=== PATIENT | female | born 1975 | race Caucasian/White ===

== ENCOUNTER → 2016-11-23 | Outpatient (CLI) | payer BC | END | disposition home or self-care (01) | LOC: LABWHC1 16:34 | PROVIDERS: ATTEND Dermatology Dermatopathology | DX: L70.0 Acne vulgaris (principal); E87.5 Hyperkalemia; Z79.899 Other long term (current) drug therapy | CPT/HCPCS: 36415; 84132 ==

== ENCOUNTER → 2018-05-16 | Outpatient (CLI) | payer BC ==
--- NOTE | 2018-05-16 07:32 | US ---
EXAMINATION TYPE: US liver DATE OF EXAM: 05/16/2018 COMPARISON: US CLINICAL HISTORY: R74.8 elevated liver enzymes. Elevated LFT's Large pt body habitus, difficult to scan EXAM MEASUREMENTS: Liver Length: 15.6 cm Gallbladder Wall: 0.1 cm CBD: 0.3 cm Right Kidney: 11.4 x 4.5 x 5.5 cm Pancreas: wnl, tail obscured by overlying bowel gas Liver: Difficult to penetrate. There is increased echogenicity of the hepatic parenchyma with dimini shed visualization of the portal triads most commonly relating to hepatic steatosis and limiting eval uation for underlying hepatic masses. Focal wedge-shaped hypoechoic area that is geographic and morph ology is seen adjacent to the gallbladder fossa most likely representing focal fatty sparing. Gallbladder: wnl Evidence for sonographic Valente's sign: No CBD: wnl Right Kidney: wnl IMPRESSION: Sonographic findings most compatible with hepatic steatosis and focal fatty sparing. No c holelithiasis or acute cholecystitis.
== END | disposition home or self-care (01) ==
LOC: RADUSWWP 07:05
PROVIDERS: ATTEND Family Medicine
DX: R74.8 Abnormal levels of other serum enzymes (principal)
CPT/HCPCS: 76705

== ENCOUNTER → 2021-02-19 | Outpatient (CLI) | payer BC ==
--- NOTE | 2021-02-23 09:12 | MM ---
Reason for exam: screening (asymptomatic). Last mammogram was performed 4 years and 11 months ago. Physical Findings: A clinical breast exam by your physician is recommended on an annual basis and results should be correlated with mammographic findings. MG Screening Mammo w CAD Bilateral CC and MLO view(s) were taken. Prior study comparison: March 07, 2016, bilateral MG screening mammo w CAD. The breast tissue is heterogeneously dense. This may lower the sensitivity of mammography. Finding: There are typically benign round calcifications in both breasts. No significant changes in finding since March 07, 2016. ASSESSMENT: Benign, BI-RAD 2 RECOMMENDATION: Routine screening mammogram of both breasts in 1 year.
== END | disposition home or self-care (01) ==
LOC: RADMAMWWP 11:04
PROVIDERS: ATTEND Family Medicine
DX: Z12.31 Encounter for screening mammogram for malignant neoplasm of breast (principal)
CPT/HCPCS: 77067

== ENCOUNTER → 2022-06-07 | Outpatient (CLI) | payer OTHER ==
[2022-06-07 18:02] LABS: Basophils # (A) 0.05 X 10*3/uL (0.00-0.10); Basophils % (A) 0.8 %; Eosinophils # (A) 0.36 X 10*3/uL (0.04-0.35); Eosinophils % (A) 5.5 %; HCT 40.1 % (37.2-46.3); HGB 13.1 g/dL (12.0-15.0); Immature Grans, Automated 0.2 %; Lymphocytes # (A) 1.53 X 10*3/uL (0.90-5.00); Lymphocytes % (A) 23.4 %; MCH 28.2 pg (27.0-32.0); MCHC 32.7 g/dL (32.0-37.0); MCV 86.4 fL (80.0-97.0); Mean Platelet Volume 11.1 fL (9.5-12.2); Monocytes # (A) 0.49 X 10*3/uL (0.20-1.00); Monocytes % (A) 7.5 %; NRBC Per 100 WBC 0 /100 WBCS (0.0-0.0); Neutrophils # (A) 4.11 X 10*3/uL (1.80-7.70); Neutrophils % (A) 62.6 %; Platelet Count 285 X 10*3/uL (140-440); RBC 4.64 X 10*6/uL (4.10-5.20); RDW 15.3 % (11.5-14.5); WBC 6.55 X 10*3/uL (4.50-10.00)
[2022-06-07 18:36] LABS: ALT 23 U/L (8-44); AST 16 U/L (13-35); African American GFR (CKD) 127.5 (60.0-200.0); Albumin 4.3 g/dL (3.8-4.9); Albumin/Globulin Ratio 1.78 (1.60-3.17); Alkaline Phosphatase 98 U/L (41-126); BUN/Creat Ratio 15.08 Ratio (12.00-20.00); Blood Urea Nitrogen 8.9 mg/dL (9.0-27.0); Calcium 9.2 mg/dL (8.7-10.3); Carbon Dioxide 23.4 mmol/L (20.0-27.5); Chloride 102 mmol/L (96-109); Globulin 2.4 g/dL (1.6-3.3); Glucose 137 mg/dL (70-110); LDL Cholesterol,Calculated 86.6 mg/dL (0.0-131.0); Potassium 4.5 mmol/L (3.5-5.5); Sodium 136 mmol/L (135-145); Total Protein 6.8 g/dL (6.2-8.2); VLDL Calculation 19.72 mg/dL (5.00-40.00)
== END | disposition home or self-care (01) ==
LOC: LABWHC1 11:31
PROVIDERS: ATTEND Physician Assistant Medical
DX: I10 Essential (primary) hypertension (principal); E11.9 Type 2 diabetes mellitus without complications
CPT/HCPCS: 36415; 80053; 80061; 83036; 85025

== ENCOUNTER → 2022-08-24 | Outpatient (CLI) | payer OTHER ==
--- NOTE | 2022-08-25 09:29 | MM ---
Reason for Exam: Screening (asymptomatic). Last mammogram was performed 1 year(s) and 6 month(s) ago. Patient History: Menarche at age 12. Risk Values: Betsy 5 year model risk: 0.7%. NCI Lifetime model risk: 7.6%. Prior Study Comparison: 03/07/2016 Bilateral Screening Mammogram, [facility]. 02/19/2021 Bilateral Screening Mammogram, [facility]. Tissue Density: The breast tissue is almost entirely fat. Findings: Analyzed By CAD. Benign appearing calcifications bilaterally. There is no suspicious group of microcalcifications or new suspicious mass in either breast. Overall Assessment: Benign, BI-RAD 2 Management: Screening Mammogram of both breasts in 1 year. A clinical breast exam by your physician is recommended on an annual basis and results should be correlated with mammographic findings. [facility] will attempt to contact patient to return for supplemental views and ultrasound if indicated. Electronically signed and approved by: Weston Sykes DO
== END | disposition home or self-care (01) ==
LOC: RADMAMWWP 09:52
PROVIDERS: ATTEND Family Medicine
DX: Z12.31 Encounter for screening mammogram for malignant neoplasm of breast (principal)
CPT/HCPCS: 77067

== ENCOUNTER → 2025-01-24 | Outpatient (CLI) | payer BC ==
--- NOTE | 2025-01-24 17:51 | MM ---
Reason for Exam: Screening (asymptomatic). Last mammogram was performed 2 year(s) and 5 month(s) ago. Patient History: Menarche at age 12. Risk Values: Betsy 5 year model risk: 0.7%. NCI Lifetime model risk: 7.4%. Prior Study Comparison: 03/07/2016 Bilateral Screening Mammogram, [facility]. 02/19/2021 Bilateral Screening Mammogram, [facility]. 08/24/2022 Bilateral MG screening mammo w CAD, [facility]. Tissue Density: There are scattered areas of fibroglandular density. Findings: Analyzed By CAD. Redemonstrated scattered benign round calcifications. Unchanged right upper outer quadrant focal asymmetry. There is no suspicious group of microcalcifications or new suspicious mass in either breast. Overall Assessment: Benign, BI-RAD 2 Management: Screening Mammogram of both breasts in 1 year. Patient should continue monthly self-breast exams. A clinical breast exam by your physician is recommended on an annual basis. This exam should not preclude additional follow-up of suspicious palpable abnormalities. Note on Betsy scores and lifetime risk: 1. A Betsy score greater than 3% is considered moderate risk. If this is the case, consider specialist referral to assess eligibility for a risk reducing agent. 2. If overall lifetime risk for the development of breast cancer is 20% or higher, the patient may qualify for future screening with alternating mammogram and breast MRI. [facility], , 01/24/2025 5:49 PM. Electronically signed and approved by: Nara Jackson M.D. Radiologist
== END | disposition home or self-care (01) ==
LOC: RADMAMWWP 09:35
PROVIDERS: ATTEND Family Medicine
DX: Z12.31 Encounter for screening mammogram for malignant neoplasm of breast (principal); R92.323 Mammographic fibroglandular density, bilateral breasts; R92.1 Mammographic calcification found on diagnostic imaging of breast
CPT/HCPCS: 77067

== ENCOUNTER 2025-02-04 13:10 | Emergency (ER) | payer BC ==
[2025-02-04 13:14] VITALS: RESP 18
--- NOTE | 2025-02-04 14:45 | ED ---
General Adult HPI - General Chief complaint: Extremity Problem,Nontraumatic Stated complaint: R leg pain Time Seen by Provider: 02/04/25 13:25 Source: patient, RN notes reviewed Mode of arrival: wheelchair Limitations: no limitations - History of Present Illness Initial comments: 50-year-old female presents emergency department for complaints of nontraumatic right leg pain that has been going on for "a while ". She states that she was evaluated by her primary care provider where they believe that she may have pulled a muscle or pinched nerve in her back and she has been taking baclofen with minimal relief in pain. She states that the pain in the calf is not worsening over the past few days. She denies swelling of her calf, redness, recent travel or surgeries, history of DVT/PE, chest pain or difficulty in breathing. - Related Data Previous Rx's Medication Instructions Recorded Cyclobenzaprine [Flexeril] 10 mg PO TID PRN #15 tab 02/04/25 Ketorolac [Toradol] 10 mg PO Q8HR #15 tab 02/04/25 Allergies Allergy/AdvReac Type Severity Reaction Status Date / Time azithromycin Allergy Unknown Verified 02/04/25 13:14 Penicillins Allergy Unknown Verified 02/04/25 13:14 tetracycline Allergy Unknown Verified 02/04/25 13:14 Review of Systems ROS Statement: Those systems with pertinent positive or pertinent negative responses have been documented in the HPI. ROS Other: All systems not noted in ROS Statement are negative. Past Medical History Past Medical History: Diabetes Mellitus, Hypertension History of Any Multi-Drug Resistant Organisms: None Reported Past Surgical History: No Surgical Hx Reported Past Psychological History: No Psychological Hx Reported Smoking Status: Never smoker Past Alcohol Use History: None Reported Past Drug Use History: None Reported General Exam Limitations: no limitations General appearance: alert, in no apparent distress Neck exam: Present: normal inspection. Absent: tenderness, meningismus, lymphadenopathy Respiratory exam: Present: normal lung sounds bilaterally. Absent: respiratory distress, wheezes, rales, rhonchi, stridor Cardiovascular Exam: Present: regular rate, normal rhythm, normal heart sounds. Absent: systolic murmur, diastolic murmur, rubs, gallop, clicks GI/Abdominal exam: Present: soft, normal bowel sounds. Absent: distended, tenderness, guarding, rebound, rigid Right Lower Leg exam: Present: tenderness. Absent: swelling, palpable cord, Homans' sign Back exam: Present: normal inspection, full ROM, tenderness. Absent: CVA tenderness (R), CVA tenderness (L) Neurological exam: Present: alert, oriented X3, CN II-XII intact Course Vital Signs 02/04/25 02/04/25 13:13 16:22 Temperature 98.5 F 98.4 F Pulse Rate 87 82 Respiratory 18 18 Rate Blood Pressure 128/89 124/86 O2 Sat by Pulse 97 98 Oximetry Medical Decision Making - Medical Decision Making Was pt. sent in by a medical professional or institution (, [place], [employer] [employer], urgent care, hospital, or senior living...) When possible be specific @ -No Did you speak to anyone other than the patient for history (EMS, parent, family, police, friend...)? What history was obtained from this source @ -No Did you review nursing and triage notes (agree or disagree)? Why? @ -I reviewed and agree with nursing and triage notes Were old charts reviewed (outside hosp., previous admission, EMS record, old EKG, old radiological studies, urgent care reports/EKG's, senior living records)? Report findings @ -No old charts were reviewed Differential Diagnosis (chest pain, altered mental status, abdominal pain women, abdominal pain men, vaginal bleeding, weakness, fever, dyspnea, syncope, headache, dizziness, GI bleed, back pain, seizure, CVA, palpatations, mental health, musculoskeletal)? @ -Differential Back Pain: Strain, zoster, cauda equina syndrome, epidural abscess, vertebral osteomyelitis, discitis, fracture, subluxation, disc herniation, DJD, spinal stenosis, dissection, AAA, pancreatitis, peptic ulcer disease, pyelonephritis, kidney stone, this is not meant to be an all-inclusive list. EKG interpreted by me (3pts min.). @ -none X-rays interpreted by me (1pt min.). @ -None done CT interpreted by me (1pt min.). @ -None done U/S interpreted by me (1pt. min.). @ -Ultrasound imaging of the right lower extremity no evidence for DVT What testing was considered but not performed or refused? (CT, X-rays, U/S, labs)? Why? @ -None What meds were considered but not given or refused? Why? @ -None Did you discuss the management of the patient with other professionals (professionals i.e. DrChristina, PA, [employer], lab, RT, psych nurse, social insurance analyst, conference specialist, teacher, financial officer, disease case manager rn)? Give summary @ -No Was smoking cessation discussed for >3mins.? @ -No Was critical care preformed (if so, how long)? @ -No Were there social determinants of health that impacted care today? How? (Home lessness, low income, unemployed, alcoholism, drug addiction, transportation, low edu. Level, literacy, decrease access to med. care, assisted, rehab)? @ -No Was there de-escalation of care discussed even if they declined (Discuss DNR or withdrawal of care, Hospice)? DNR status @ -No What co-morbidities impacted this encounter? (DM, HTN, Smoking, COPD, CAD, Cancer, CVA, ARF, Chemo, Hep., AIDS, mental health diagnosis, sleep apnea, morbid obesity)? @ -None Was patient admitted / discharged? Hospital course, mention meds given and route, prescriptions, significant lab abnormalities, going to OR and other pertinent info. @ -[Discharge. 50-year-old female presenting with complaints of right calf and leg pain. Overall patient is well-appearing. Negative Homans signs on examination with no evidence of palpable cord or erythema. Patient does have tenderness to the Is a repeat ultrasound that is negative for evidence of DVT. Patient's symptoms align with lumbar radiculopathy. There are no red flag findings concerning for cauda equina such as loss of bladder or bowel control or saddle anesthesias. Patient provided with the medication and orthopedic referral was instructed follow-up with primary care provider. Continue supportive treatment. Case discussed with Dr. Edwards Undiagnosed new problem with uncertain prognosis? @ -No Drug Therapy requiring intensive monitoring for toxicity (Heparin, Nitro, Insulin, Cardizem)? @ -No Were any procedures done? @ -No Diagnosis/symptom? @ -Lumbar radiculopathy Acute, or Chronic, or Acute on Chronic? @ -Acute Uncomplicated (without systemic symptoms) or Complicated (systemic symptoms)? @ -Uncomplicated Side effects of treatment? @ -No Exacerbation, Progression, or Severe Exacerbation? @ -No Poses a threat to life or bodily function? How? (Chest pain, [place], SC, pneumonia, PE, COPD, DKA, ARF, appy, cholecystitis, CVA, Diverticulitis, Homicidal, Suicidal, threat to staff... and all critical care pts) @ -No Disposition Clinical Impression: Lumbar back pain with radiculopathy affecting lower extremity Disposition: HOME SELF-CARE Condition: Good Instructions (If sedation given, give patient instructions): Lumbar Radiculopathy (ED) Additional Instructions: Please return to the Emergency Department if symptoms worsen or any other concerns. You may take Toradol with acetaminophen/Tylenol however do not take this medication with other NSAIDs such as Motrin/Aleve/ibuprofen. Prescriptions: Cyclobenzaprine [Flexeril] 10 mg PO TID PRN #15 tab PRN Reason: Muscle Spasm Ketorolac [Toradol] 10 mg PO Q8HR #15 tab Is patient prescribed a controlled substance at d/c from ED?: No Referrals: Natasha Lozano MD [Primary Care Provider] - 1-2 days Baron Mcdonald MD [STAFF PHYSICIAN] - 1-2 days Time of Disposition: 15:56
[2025-02-04] MEDS: MORPHINE SULFATE 4 MG/ML SYRINGE IM STA (14:50)
--- NOTE | 2025-02-04 15:28 | US ---
EXAMINATION TYPE: US venous doppler duplex LE RT DATE OF EXAM: 02/04/2025 3:16 PM COMPARISON: NONE CLINICAL INDICATION: Female, 50 years old with history of pain; Pain. Patient takes baby aspirin. TECHNIQUE: The lower extremity deep venous system is examined utilizing real time linear array sonog ivette with graded compression, color doppler sonography, and spectral doppler. SIDE PERFORMED: Right FINDINGS: VESSELS IMAGED: Common Femoral Vein Deep Femoral Vein Greater Saphenous Vein * Femoral Vein Popliteal Vein Small Saphenous Vein * Proximal Calf Veins (* superficial vessels) Right Leg: No evidence of DVT. *Complex area seen right medial popliteal fossa: 5.3 x 2.5 x 1.3 cm. IMPRESSION: No evidence for DVT. [facility], , 02/04/2025 3:26 PM
[2025-02-04] MEDS: methylPREDNISolone SOD SUCCI 125 MG/2 ML VIAL IM ONE (16:09)
[2025-02-04] MEDS: ACET/COD 300 MG/30 MG STARTER PACK 6 TAB BTL PO STA (16:09)
[2025-02-04] MEDS: LIDOCAINE 4% PATCH TOPICAL ONE (16:10)
[2025-02-04 16:23] VITALS: BP 124/86; PULSE 82; TEMP 98.4
== END 2025-02-04 16:28 | disposition home or self-care (01) ==
LOC: EC 13:10
DX: M51.17 Intervertebral disc disorders with radiculopathy, lumbosacral region (principal); Z88.0 Allergy status to penicillin; Z88.8 Allergy status to other drugs, medicaments and biological substances
CPT/HCPCS: 93971; 99283; 96372 ×2; J2270; J2919

== ENCOUNTER → 2025-03-04 | Outpatient (CLI) | payer BC ==
--- NOTE | 2025-03-04 11:37 | MR ---
INDICATION: Patient age:Female; 50 years old; Reason for study: M47.26 M41.86 M54.5; [facility]. COMPARISONS: Lumbar spine radiograph 02/10/2025. TECHNIQUE: Multi planar, multi sequence imaging was performed utilizing: T1-weighted, T2-weighted, a nd turbo inversion recovery imaging of the lumbar spine. The patient was not given contrast. FINDINGS: The lumbar vertebral bodies do have preserved heights and alignment. Multilevel disc eloise ccation is present of the lower lumbar spine from L3 through S1. Anterior osteophytosis at L3-L4 and T11-T12. The conus medullaris and the distal spinal cord do appear unremarkable with regards to their signal intensity and morphology. T12-L1: No significant disc pathology is identified. The spinal canal and neural foramen are patent L1-L2: No significant disc pathology is identified. The spinal canal and neural foramen are patent. L2-L3: No significant disc pathology is identified. The spinal canal and neural foramen are patent. L3-L4: Disc bulge is identified with associated enlargement of the facet joints. The spinal canal is mildly narrowed. Mild bilateral neural foraminal stenosis. L4-L5: A disc bulge is identified with associated enlargement of the facet joints. The spinal canal mildly narrowed. Neural canals are mildly narrowed bilaterally. L5-S1: Central disc extrusion with superior and inferior migration of disc material. Approximately 9 mm a superior migration and 1.3 cm of inferior migration. Results in severe spinal canal stenosis wit h effacement of the traversing nerve roots. Minimal bilateral neural foraminal stenosis. Other significant findings: Partial visualization of T2 hyperintense multiseptated cystic lesion with in the pelvis. Measures at least 7.2 cm. IMPRESSION: 1. L5-S1 disc extrusion with superior and inferior migration disc material. Resultant severe spinal canal stenosis. 2. 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 3. Partial visualization of a large multiseptated cystic lesion within the pelvis. Recommend further evaluation with pelvic ultrasound to begin with. [facility], , 03/04/2025 11:35 AM
== END | disposition home or self-care (01) ==
LOC: RADMRIMAIN 10:10
PROVIDERS: ATTEND Orthopaedic Surgery
DX: M48.061 Spinal stenosis, lumbar region without neurogenic claudication (principal); M51.16 Intervertebral disc disorders with radiculopathy, lumbar region; M47.26 Other spondylosis with radiculopathy, lumbar region; M41.86 Other forms of scoliosis, lumbar region
CPT/HCPCS: 72148